=== PATIENT | male | born 1975 | race African-American/Black ===

== ENCOUNTER 2022-03-14 19:54 | Emergency (ER) | payer SELFPAY ==
[~2022-03-14] VITALS: Ht 193 cm; Wt 87.5 kg
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
--- NOTE | 2022-03-14 20:49 | NUR ---
PATIENT'S EARING IN REMOVED, SAVED IN A URINE CUP AND GAVE IT TO THE PATIENT TO KEEP IT IN HIS POCKET
--- NOTE | 2022-03-14 20:49 | NUR ---
PT TAKEN TO CT VIA [facility]
[2022-03-14] MEDS ORDERED: LIDOCAINE 1%-EPI 1:100,000 20 ML VIAL TP ONE (21:00)
--- NOTE | 2022-03-14 21:05 | NUR ---
BACK FROM CT
[2022-03-14] MEDS ORDERED: HYDROCODONE/APAP 5/325MG TABLET ONE ×2 (21:24→23:54)
[2022-03-14] MEDS ORDERED: HYDROCODONE/APAP 5/325MG TABLET PO ONE (22:00)
--- NOTE | 2022-03-14 23:27 | NUR ---
ROMULO READ, ON THE PHONE WITH NABIL MITCHELL NP
[2022-03-14] MEDS ORDERED: CEPH500T PO (23:31)
[2022-03-14] MEDS ORDERED: HYDR-4209 PO (23:31)
[2022-03-14] MEDS ORDERED: IBUP-1955 PO (23:31)
[2022-03-15] MEDS ORDERED: HYDROCODONE/APAP 5/325MG TABLET PO ONE
--- NOTE | 2022-03-15 00:07 | NUR ---
WOUND CARE DONE. SPLINT APPLIED.
--- NOTE | 2022-03-15 00:12 | NUR ---
Patient discharged to home in stable condition. Written and verbal after care instructions given. Patient verbalizes understanding of instruction.
[2022-03-15 00:13] VITALS: BP 128/81
== END 2022-03-15 00:14 | disposition home or self-care (01) ==
LOC: ER 19:56
DX: S52.124A Nondisplaced fracture of head of right radius, initial encounter for closed fracture (principal); S52.134A Nondisplaced fracture of neck of right radius, initial encounter for closed fracture; S01.312A Laceration without foreign body of left ear, initial encounter; Z60.2 Problems related to living alone; Z79.899 Other long term (current) drug therapy; V00.841A Fall from standing electric scooter, initial encounter; Y93.89 Activity, other specified; Y92.89 Other specified places as the place of occurrence of the external cause; Y99.8 Other external cause status
CPT/HCPCS: 99284; 72125; 12013; 73080; 73564; 70450; A6403

== ENCOUNTER 2022-03-28 12:55 | Emergency (ER) | payer SELFPAY ==
[~2022-03-28] VITALS: Ht 193 cm; Wt 88.5 kg
[~2022-03-28 12:55] MED LIST: CEPH500T PO; HYDR-4209 PO; IBUP-1955 PO
--- NOTE | 2022-03-28 13:22 | NUR ---
LEFT EAR SUTURE REMOVAL (2 WEEKS )
[2022-03-28 14:07] VITALS: BP 119/71
== END 2022-03-28 14:07 | disposition home or self-care (01) ==
LOC: ER 13:01
DX: S01.312D Laceration without foreign body of left ear, subsequent encounter (principal); Z60.2 Problems related to living alone; X58.XXXD Exposure to other specified factors, subsequent encounter